=== PATIENT | male | born 1980 | race Caucasian/White ===

== ENCOUNTER 2018-12-11 07:00 | Emergency (ER) | payer MEDICAID ==
[~2018-12-11] VITALS: Ht 172.7 cm; Wt 73.0 kg
[2018-12-11] MEDS ORDERED: SODIUM CHLORIDE 0.9% 1,000 ML IV ONE (07:23)
[2018-12-11] MEDS ORDERED: ONDANSETRON HCL 4MG/2ML INJ IV ONE (07:30)
[2018-12-11 07:46] LABS: BASOPHILS % 0.4 % (0.0-2.0); EOSINOPHILS % 1.1 % (0.0-5.0); HEMATOCRIT. 47.3 % (42.0-52.0); HEMOGLOBIN. 15.3 g/dL (14.0-18.0); LYMPHOCYTES % 23.5 % (20.0-50.0); MEAN CORPUSCULAR HEMOGLOBIN 27.4 pg (28.0-32.0); MEAN CORPUSCULAR VOLUME 85.1 fL (80.0-94.0); MEAN PLATELET VOLUME 8.9 fl (7.4-10.4); PLATELET 269 x1000/uL (130-400); RED BLOOD CELL COUNT 5.56 mill/uL (4.7-6.1); RED CELL DISTRIBUTION WIDTH 14.7 % (11.6-14.6)
[2018-12-11 07:52] LABS: CHLORIDE 111 mEq/L (98-107)
[2018-12-11 07:53] LABS: PARTIAL THROMBOPLASTIN TIME 28.4 sec (23.4-31.0)
[2018-12-11 07:55] LABS: ETHANOL BLOOD 251 mg/dL
[2018-12-11 09:46] LABS: *BENZODIAZEPINES SCREEN URINE NEGATIVE (NEGATIVE); *COCAINE SCREEN URINE NEGATIVE (NEGATIVE); METHADONE URINE SCREEN NEGATIVE (NEGATIVE); OPIATES URINE SCREEN NEGATIVE (NEGATIVE); PHENCYCLIDINE URINE SCREEN NEGATIVE (NEGATIVE)
[2018-12-11 09:47] LABS: *AMPHETAMINES SCREEN URINE NEGATIVE (NEGATIVE); *BARBITURATES SCREEN URINE NEGATIVE (NEGATIVE); CANNABINOID URINE SCREEN NEGATIVE (NEGATIVE)
[2018-12-11 15:20] VITALS: BP 101/51
== END 2018-12-11 15:30 | disposition home or self-care (01) ==
LOC: ER 07:00
DX: T51.0X1A Toxic effect of ethanol, accidental (unintentional), initial encounter (principal); S00.83XA Contusion of other part of head, initial encounter; S60.222A Contusion of left hand, initial encounter; G92 Toxic encephalopathy; W18.39XA Other fall on same level, initial encounter; Y93.89 Activity, other specified; Y92.89 Other specified places as the place of occurrence of the external cause; Y99.8 Other external cause status
CPT/HCPCS: 36415; 70450; 70486; 72125; 73110; 73130; 80048; 80305; 80307; 80320; 80329; 85025; 85610; 85730; 96374; 99284; J2405; J7030; G0480

== ENCOUNTER 2019-05-22 15:52 | Emergency (ER) | payer MEDICAID ==
[~2019-05-22] VITALS: Ht 167.6 cm; Wt 80.0 kg
[2019-05-22] MEDS ORDERED: IBUPROFEN 600MG TABLET PO ONE (17:00)
[2019-05-22] MEDS ORDERED: TETANUS, DIPHTHERIA, PERTUSSIS VAC/PF 0.5ML (>7YR OLD) IM ONE (17:00)
[2019-05-22 17:56] VITALS: BP 129/99
== END 2019-05-22 17:57 | disposition home or self-care (01) ==
LOC: ER 15:52
DX: S91.202A Unspecified open wound of left great toe with damage to nail, initial encounter (principal); W22.8XXA Striking against or struck by other objects, initial encounter; Y93.89 Activity, other specified; Y92.512 Supermarket, store or market as the place of occurrence of the external cause; Z23 Encounter for immunization
CPT/HCPCS: 73630; 90471; 90715; 99283

== ENCOUNTER 2019-07-03 11:29 | Emergency (ER) | payer MEDICAID ==
[~2019-07-03] VITALS: Ht 167.6 cm; Wt 75.0 kg
[2019-07-03] MEDS ORDERED: KETOROLAC 60MG/2ML VIAL IM ONE (12:45)
[2019-07-03 13:23] VITALS: BP 128/78
== END 2019-07-03 13:11 | disposition home or self-care (01) ==
LOC: ER 11:56
DX: M25.512 Pain in left shoulder (principal)
CPT/HCPCS: 73030; 96372; 99283; J1885